=== PATIENT | female | born 1995 | race Caucasian/White ===

== ENCOUNTER 2021-04-22 16:58 | Emergency (ER) | payer OTHER, SELFPAY ==
--- NOTE | ~2021-04-22 | XR_ITS ---
EXAMINATION: XR CHEST CLINICAL INFORMATION: Fever and cough COMPARISON: None TECHNIQUE: Frontal view of the chest was obtained. FINDINGS: No significant abnormality is noted involving the heart, lungs, mediastinum, bony thorax or soft tissues. XR/XR chest 1V IMPRESSION: Unremarkable examination.
--- NOTE | ~2021-04-22 | CT_ITS ---
EXAMINATION: CT ANGIOGRAM CHEST WITH AND WITHOUT CONTRAST (CT PULMONARY ANGIOGRAM FOR PE) CLINICAL INFORMATION: Fever, shortness of breath, tachycardia. COMPARISON: Chest radiograph done earlier the same day. TECHNIQUE: Prior to contrast administration, noncontrast localization images were obtained. Subsequently, multidetector volumetric imaging was performed from the thoracic inlet to below the diaphragms following the administration of 85 mL Omnipaque 350 intravenous contrast. No contrast reaction reported. Sagittal, coronal, and MIP oblique sagittal reformatted images were obtained on the CT workstation, uploaded to PACS, and reviewed. This CT examination was performed using dose optimization techniques as appropriate, variously including the following: *Automated exposure control. *Adjustment of mA and/or kV according to patient size (this includes techniques or standardized protocols for targeted exams where dose is matched to indication/reason for exam; i.e. extremities or head). *Use of iterative reconstruction technique. Total exam dose-length product 277 mGy-cm. FINDINGS: QUALITY OF STUDY/CONTRAST BOLUS: Satisfactory. PULMONARY ARTERIES: No central or segmental pulmonary emboli. THORACIC AORTA: No aneurysm or dissection. LUNG: No pulmonary nodule, mass, or airspace consolidation. The central airways are patent. PLEURA: No pleural effusion or pneumothorax. MEDIASTINUM: Mild cardiomegaly. No pericardial effusion. No mediastinal or hilar lymphadenopathy. No evidence of septal bowing or right heart strain. CHEST WALL/AXILLA: No axillary or internal mammary lymphadenopathy. OSSEOUS STRUCTURES: No acute or suspicious osseous abnormality. UPPER ABDOMEN: Unremarkable. No reflux of contrast into the hepatic veins to suggest elevated right heart pressures. CT/CT angio chest PE protocol IMPRESSION: 1. No central or segmental pulmonary embolism. 2. No pulmonary nodule, mass, or airspace consolidation. 3. Mild cardiomegaly. VTE: Negative.
[2021-04-22 17:13] VITALS: BP 117/62; PULSE 111; RESP 20; TEMP 37.8; O2SAT 96; BMI 80.4
--- NOTE | 2021-04-22 17:33 | ED.GENADULT ---
HPI - General Adult General Chief complaint: Upper Respiratory Symptoms Stated complaint: Covid symptoms Time Seen by Provider: 04/22/21 17:32 Source: patient Mode of arrival: ambulatory Limitations: no limitations History of Present Illness HPI narrative: 18-year-old female with history of obesity otherwise denies any past medical or surgical history she presents today with complaint of states she has had some mild runny nose/congestion with chills and body aches since yesterday and today had some vomiting and nausea with epigastric abdominal pain. States she has not had COVID-19 and is not vaccinated. States he has just generalized body aches that are most bothersome. Onset (ago): day(s) Radiation: non-radiation Severity: moderate Quality: aching Relieving factors: none Exacerbating factors: none Associated symptoms: nausea/vomiting Treatments prior to arrival: none Related Data Previous Rx's Medication Instructions Recorded ondansetron HCl 4 mg tablet 4 mg PO Q8H PRN #10 tab 04/22/21 (Zofran) Allergies Allergy/AdvReac Type Severity Reaction Status Date / Time No Known Allergies Allergy Verified 04/22/21 23:11 Review of Systems Review of Systems: Constitutional: No Weight loss, No Fever, No Chills, No Night Sweats, No Fatigue, No Malaise ENT/Mouth: No Hearing loss, No Ear Pain, + Nasal Congestion, No Sinus Pain, No Hoarseness, No sore throat, + Rhinorrhea, No Swallowing Difficulty Eyes: No Eye Pain, No Swelling, No Redness, No Foreign Body, No Discharge, No Vision Changes Cardiovascular: No Chest Pain, No SOB, No Dyspnea on Exertion, No Orthopnea, No Edema, No Palpitations Respiratory: No Cough, No Sputum, No Wheezing, No Dyspnea Gastrointestinal: + Nausea, + Vomiting, No Diarrhea, No Constipation, No abdominal Pain, No Hematochezia, No Melena Genitourinary: no irregular bleeding, No Dysuria, No Urinary Frequency, No Hematuria, No Urinary Incontinence, No Urgency, No Flank Pain, No Urinary Flow Changes, No Hesitancy Musculoskeletal: No joint pain, No Myalgias, No Joint Swelling Skin: No Skin Lesions, No rash Neuro: No Weakness, No Numbness, No Paresthesias, No Loss of Consciousness, No Dizziness, No Headache Psych: No Anxiety/Panic, No Depression, No SI/HI/AH/VH, No Social Issues Heme/Lymph: No Bruising, No Bleeding,No Lymphadenopathy Endocrine: No Polyuria, No Polydipsia, No Temperature Intolerance [facility] Past Medical History Medical History (Updated 04/22/21 @ 22:15 by Lm Correa NP) No known health problems Social History Social History Alcohol intake: current Alcohol intake frequency: a few times a month Patient Tobacco Use Status: Current everyday Tobacco user Smoked in Last 30 Days: Yes Use of substances other than those prescribed or required for medical reasons: No Advance Directives: No Advance Directives Information Provided: No Physical Exam Vital Signs: Vital Signs: Last Vital Signs Temp 99.5 F 04/22/21 23:09 Pulse 94 04/22/21 23:09 Resp 19 04/22/21 23:09 BP 140/70 H 04/22/21 23:09 Pulse Ox 98 04/22/21 23:09 Body Mass Index 80.4 Const: General: cooperative and healthy appearing; No acute distress or intoxicated appearing Nutritional Appearance: average body habitus Orientation/consciousness: patient oriented x3 HENMT: Head: Yes normal to inspection Ears: hearing grossly normal bilaterally Eyes: General: appearance normal, both eyes and all related structures Visual Araya: normal visual araya by confrontation Neck: Neck: Yes normal visual inspection, No positive Brudzinski's sign, No positive Kernig's sign and No tender Thyroid: Thyroid normal Chest: Chest palpation & inspection: normal inspection of the chest Resp: Effort & Inspection: normal respiratory effort Auscultation: clear to auscultation bilaterally Cardio: Jugular venous distension: no JVD Rate: tachycardic Heart sounds: S1 normal heart sound present and S2 normal heart sound present GI: Inspection: Yes normal to inspection Palpation (GI): Soft to palpation, nontender, no guarding, not rigid, hepatosplenomegaly present, no hepatosplenomegaly, no hepatomegaly, no pulsatile masses, no aortic enlargement, No Ascites present, No Carnett's sign positive, No Rebound tenderness present and No Bladder palpation abnormal Percussion: Yes normal to percussion Auscultation: normal bowel sounds : General: No Bladder palpation abnormal and Yes no CVA tenderness Back/Spine/Pelvis: Back: no CVA tenderness Skin: General skin exam: no rashes or lesions noted Lesions: no lesions Rashes: no rashes Trauma: no lacerations or abrasions Hair: normal Neuro: General: patient oriented x3 Extrem: General: Yes normal to inspection Course Reevaluation(s) Reevaluation #1: Febrile upon arrival, tachycardic mild upper respiratory symptoms. Meeting sepsis criteria protocol initiated. Will check labs including lactic acid, flu and RSV. States no abdominal pain just body aches all over. Reevaluation #2: With labs shows leukocytosis of 14, compressive metabolic profile shows elevated LDH, CRP slightly elevated, albumin 3.2, calcium 7.4 otherwise CMP within normal limits., chest x-ray unremarkable, surprisingly COVID, flu and RSV PCR negative. Afebrile now at 98.8 though she still slightly tachy at 108, she is on control thus CT of the chest was pursued for PE rule out this was unremarkable. She states she has no abdominal pain she is hungry, she feels overall better. I advised her that there is a possibility the PCR can be false negative and could be due to the fact it may be done a little earlier in her onset of symptoms and she must follow CDC precautions and advised for retesting 3 days. She feels comfortable she is out of bed ambulatory steady gait. Heart rate 90, afebrile. Again no complaint of abdominal pain, abdominal exam remains benign, Stable for discharge. Medical Decision Making Lab Data Result diagrams: 04/22/21 18:31 04/22/21 18:31 Labs: Lab Results 04/22/21 04/22/21 04/22/21 Range/Units 17:49 18:31 18:31 WBC 14.4 H (4.8-10.8) X10*3/uL RBC 4.54 (4.20-5.50) X10*6/uL Hgb 13.4 (12.0-16.0) g/dl Hct 40.7 (37-47) % MCV 89.6 (80-98) fL MCH 29.5 (27.0-33.0) pg MCHC 32.9 (31.0-35.0) g/dl RDW 13.4 (11.0-16.0) % Plt Count 174 (160-400) X10*3/uL MPV 10.4 (9.4-12.3) fL Immature Gran % (Auto) 0.2 (0.0-0.4) % Neut % (Auto) 89.3 H (45-73) % Lymph % (Auto) 6.9 L (20-40) % Osborne % (Auto) 3.5 (2-11) % Eos % (Auto) 0.0 (0-4) % Baso % (Auto) 0.1 (0-2) % Lymph # (Auto) 1.0 L (1.2-4.9) X10*3/uL Osborne # (Auto) 0.5 (0.1-1.2) X10*3/uL Eos # (Auto) 0.0 (0.0-0.4) X10*3/uL Baso # (Auto) 0.0 (0.0-0.2) X10*3/uL Abs Immat Gran (auto) 0.03 (0.00-0.03) X10*3/uL Absolute Neuts (auto) 12.9 H (2.0-8.3) X10*3/uL Absolute Nucleated RBC 0.000 (0.0-0.012) X10*3/uL Nucleated RBC % (auto) 0.0 (0.0-0.2) /100WBC PT 14.0 H (9.9-13.0) SEC INR 1.2 H (0.9-1.1) APTT 31.1 (24.1-38.0) SEC Sodium (135-145) mmol/L Potassium (3.3-5.1) mmol/L Chloride (96-108) mmol/L Carbon Dioxide (22-29) mmol/L Anion Gap (12-20) BUN (9-16) mg/dL Creatinine (0.5-1.4) mg/dL Estim Creat Clear Calc Estimated GFR Random Glucose (60-115) mg/dL Lactic Acid (0.5-2.0) mmol/L Calcium (8.4-10.2) mg/dL Ferritin (10-122) ng/mL Total Bilirubin (0.0-1.0) mg/dL AST (5-31) U/L ALT (0-31) U/L Alkaline Phosphatase (39-117) U/L Lactate Dehydrogenase (122-220) U/L C-Reactive Protein (< or = 0.50) mg/dL Total Protein (6.5-8.0) g/dL Albumin (3.5-5.0) g/dL Procalcitonin ng/mL Urine Color Urine Appearance Urine pH (5.0-8.0) Ur Specific Earleton (1.005-1.025) Urine Protein (NEG-TRACE) MG/DL Urine Glucose (UA) (NEG) MG/DL Urine Ketones (NEG) MG/DL Urine Blood (NEG) Urine Nitrite (NEG) Ur Leukocyte Esterase (NEG) Urine RBC (0) /HPF Urine WBC (0-4) /HPF Ur Squamous Epith Cells /LPF Urine Bacteria /LPF Urine Mucus /LPF Urine Test (NEGATIVE) Coronavirus (PCR) NEGATIVE (Negative) Influenza Type A (PCR) NEGATIVE (Negative) Influenza Type B (PCR) NEGATIVE (Negative) RSV RNA Qual (PCR) NEGATIVE (Negative) 04/22/21 04/22/21 04/22/21 Range/Units 18:31 18:31 18:31 WBC (4.8-10.8) X10*3/uL RBC (4.20-5.50) X10*6/uL Hgb (12.0-16.0) g/dl Hct (37-47) % MCV (80-98) fL MCH (27.0-33.0) pg MCHC (31.0-35.0) g/dl RDW (11.0-16.0) % Plt Count (160-400) X10*3/uL MPV (9.4-12.3) fL Immature Gran % (Auto) (0.0-0.4) % Neut % (Auto) (45-73) % Lymph % (Auto) (20-40) % Osborne % (Auto) (2-11) % Eos % (Auto) (0-4) % Baso % (Auto) (0-2) % Lymph # (Auto) (1.2-4.9) X10*3/uL Osborne # (Auto) (0.1-1.2) X10*3/uL Eos # (Auto) (0.0-0.4) X10*3/uL Baso # (Auto) (0.0-0.2) X10*3/uL Abs Immat Gran (auto) (0.00-0.03) X10*3/uL Absolute Neuts (auto) (2.0-8.3) X10*3/uL Absolute Nucleated RBC (0.0-0.012) X10*3/uL Nucleated RBC % (auto) (0.0-0.2) /100WBC PT (9.9-13.0) SEC INR (0.9-1.1) APTT (24.1-38.0) SEC Sodium 138 (135-145) mmol/L Potassium 3.5 (3.3-5.1) mmol/L Chloride 110 H (96-108) mmol/L Carbon Dioxide 19 L (22-29) mmol/L Anion Gap 13 (12-20) BUN 9 (9-16) mg/dL Creatinine 0.73 (0.5-1.4) mg/dL Estim Creat Clear Calc 199.0 Estimated GFR > 60 Random Glucose 78 (60-115) mg/dL Lactic Acid 0.8 (0.5-2.0) mmol/L Calcium 7.4 L (8.4-10.2) mg/dL Ferritin 82 (10-122) ng/mL Total Bilirubin 0.6 (0.0-1.0) mg/dL AST 18 (5-31) U/L ALT 21 (0-31) U/L Alkaline Phosphatase 54 (39-117) U/L Lactate Dehydrogenase 228 H (122-220) U/L C-Reactive Protein 8.24 H (< or = 0.50) mg/dL Total Protein 5.4 L (6.5-8.0) g/dL Albumin 3.2 L (3.5-5.0) g/dL Procalcitonin 0.36 ng/mL Urine Color Urine Appearance Urine pH (5.0-8.0) Ur Specific Earleton (1.005-1.025) Urine Protein (NEG-TRACE) MG/DL Urine Glucose (UA) (NEG) MG/DL Urine Ketones (NEG) MG/DL Urine Blood (NEG) Urine Nitrite (NEG) Ur Leukocyte Esterase (NEG) Urine RBC (0) /HPF Urine WBC (0-4) /HPF Ur Squamous Epith Cells /LPF Urine Bacteria /LPF Urine Mucus /LPF Urine Test (NEGATIVE) Coronavirus (PCR) (Negative) Influenza Type A (PCR) (Negative) Influenza Type B (PCR) (Negative) RSV RNA Qual (PCR) (Negative) 04/22/21 04/22/21 Range/Units 20:15 20:15 WBC (4.8-10.8) X10*3/uL RBC (4.20-5.50) X10*6/uL Hgb (12.0-16.0) g/dl Hct (37-47) % MCV (80-98) fL MCH (27.0-33.0) pg MCHC (31.0-35.0) g/dl RDW (11.0-16.0) % Plt Count (160-400) X10*3/uL MPV (9.4-12.3) fL Immature Gran % (Auto) (0.0-0.4) % Neut % (Auto) (45-73) % Lymph % (Auto) (20-40) % Osborne % (Auto) (2-11) % Eos % (Auto) (0-4) % Baso % (Auto) (0-2) % Lymph # (Auto) (1.2-4.9) X10*3/uL Osborne # (Auto) (0.1-1.2) X10*3/uL Eos # (Auto) (0.0-0.4) X10*3/uL Baso # (Auto) (0.0-0.2) X10*3/uL Abs Immat Gran (auto) (0.00-0.03) X10*3/uL Absolute Neuts (auto) (2.0-8.3) X10*3/uL Absolute Nucleated RBC (0.0-0.012) X10*3/uL Nucleated RBC % (auto) (0.0-0.2) /100WBC PT (9.9-13.0) SEC INR (0.9-1.1) APTT (24.1-38.0) SEC Sodium (135-145) mmol/L Potassium (3.3-5.1) mmol/L Chloride (96-108) mmol/L Carbon Dioxide (22-29) mmol/L Anion Gap (12-20) BUN (9-16) mg/dL Creatinine (0.5-1.4) mg/dL Estim Creat Clear Calc Estimated GFR Random Glucose (60-115) mg/dL Lactic Acid (0.5-2.0) mmol/L Calcium (8.4-10.2) mg/dL Ferritin (10-122) ng/mL Total Bilirubin (0.0-1.0) mg/dL AST (5-31) U/L ALT (0-31) U/L Alkaline Phosphatase (39-117) U/L Lactate Dehydrogenase (122-220) U/L C-Reactive Protein (< or = 0.50) mg/dL Total Protein (6.5-8.0) g/dL Albumin (3.5-5.0) g/dL Procalcitonin ng/mL Urine Color DK YELLOW Urine Appearance CLEAR Urine pH 6.5 (5.0-8.0) Ur Specific [place] 1.020 (1.005-1.025) Urine Protein TRACE (NEG-TRACE) MG/DL Urine Glucose (UA) NEG (NEG) MG/DL Urine Ketones 5 (NEG) MG/DL Urine Blood NEG (NEG) Urine Nitrite NEG (NEG) Ur Leukocyte Esterase NEG (NEG) Urine RBC 0-2 (0) /HPF Urine WBC 0-2 (0-4) /HPF Ur Squamous Epith Cells 2+ /LPF Urine Bacteria NONE /LPF Urine Mucus 2+ /LPF Urine Test NEGATIVE (NEGATIVE) Coronavirus (PCR) (Negative) Influenza Type A (PCR) (Negative) Influenza Type B (PCR) (Negative) RSV RNA Qual (PCR) (Negative) Discharge Plan Discharge Clinical Impression: Acute viral syndrome, Nausea & vomiting Patient Disposition: Home, Self-Care Instructions: Acute Nausea and Vomiting (ED), Viral Syndrome (ED) Additional Instructions: Please gradual increase your diet as tolerated Drink plenty of fluids Tylenol for pain and fever Return if any abdominal pain, fever, worsening symptoms Otherwise practice social distancing and precautions. If anything goes well please follow up with primary doctor in the next 2-3 days thank you Prescriptions: New ondansetron HCl [Zofran] 4 mg tablet 4 mg PO Q8H PRN (Reason: nausea and vomiting) Qty: 10 RF: 0 Referrals: Loulou Madsen MD [Primary Care Provider] - 3 days Interventions: ED Discharge Assessment Last Done: 04/22/21 23:16
[2021-04-22 18:00] VITALS: BP 115/68; PULSE 102; RESP 26; O2SAT 98
[2021-04-22] MEDS: Acetaminophen 325 MG TABLET 975 MG PO (18:11)
[2021-04-22 18:39] LABS: MANUAL DIFF FLAG NO
[2021-04-22 18:40] LABS: Basophils Percent Auto 0.1 % (0-2); Hematocrit 40.7 % (37-47); Hemoglobin 13.4 g/dl (12.0-16.0); Imm Gran Abs Auto 0.03 X10*3/uL (0.00-0.03); Imm Gran Pct Auto 0.2 % (0.0-0.4); Lymphocytes Percent Auto 6.9 % (20-40); Mean Corpuscular HGB Conc 32.9 g/dl (31.0-35.0); Mean Corpuscular Hemoglobin 29.5 pg (27.0-33.0); Mean Corpuscular Volume 89.6 fL (80-98); Mean Platelet Volume 10.4 fL (9.4-12.3); Monocytes Absolute Auto 0.5 X10*3/uL (0.1-1.2); Monocytes Percent Auto 3.5 % (2-11); Neutrophils Absolute Auto 12.9 X10*3/uL (2.0-8.3); Neutrophils Percent Auto 89.3 % (45-73); Platelet Count 174 X10*3/uL (160-400); Red Blood Count 4.54 X10*6/uL (4.20-5.50); Red Cell Distribution Width 13.4 % (11.0-16.0); White Blood Count 14.4 X10*3/uL (4.8-10.8)
[2021-04-22] MEDS: 0.9 % Sodium Chloride 1,000 ML 999 ML IV (18:40)
[2021-04-22 18:45] LABS: INTERNATIONAL NORM RATIO 1.2 (0.9-1.1)
[2021-04-22 18:48] LABS: Partial Thromboplastin Time 31.1 SEC (24.1-38.0)
[2021-04-22 18:51] LABS: Lactic Acid 0.8 mmol/L (0.5-2.0)
[2021-04-22 18:54] LABS: Influenza A PCR NEGATIVE (Negative); Influenza B PCR NEGATIVE (Negative); Resp Syncy Virus RNA Qual PCR NEGATIVE (Negative); SARS COV2 PCR INHOUSE NEGATIVE (Negative)
[2021-04-22 18:55] LABS: Alanine Aminotransferase 21 U/L (0-31); Albumin Level 3.2 g/dL (3.5-5.0); Alkaline Phosphatase 54 U/L (39-117); Anion Gap 13 (12-20); Aspartate Amino Transferase 18 U/L (5-31); Bilirubin Total 0.6 mg/dL (0.0-1.0); Blood Urea Nitrogen 9 mg/dL (9-16); C Reactive Protein 8.24 mg/dL (< or = 0.50); Calcium 7.4 mg/dL (8.4-10.2); Carbon Dioxide 19 mmol/L (22-29); Chloride 110 mmol/L (96-108); Estimated Glomerular Filt Rate > 60; Glucose Random 78 mg/dL (60-115); Lactate Dehydrogenase 228 U/L (122-220); Potassium 3.5 mmol/L (3.3-5.1); Sodium 138 mmol/L (135-145); Total Protein 5.4 g/dL (6.5-8.0)
[2021-04-22 19:08] VITALS: BP 139/83; PULSE 95; RESP 18; TEMP 37.3; O2SAT 96; O2SAT 97
[2021-04-22 19:16] LABS: Ferritin 82 ng/mL (10-122)
[2021-04-22 19:45] LABS: Procalcitonin 0.36 ng/mL
--- NOTE | 2021-04-22 19:52 | PC.NURSE ---
RN assumed care at 1900. Pt alert and oriented x4, calm and cooperative. Pt states 5/10 abd pain and generalized body aches, pt states abd pain has improved since she came to ER. Pt denies N/V at this time. IV intact. Vitals stable, afebrile at this time. Tele monitor NSR. Call mckeon in reach. Pt resting in stretcher without complaints at this time, will continue to monitor.
[2021-04-22 20:26] LABS: Appearance Urine CLEAR; Color Urine DK YELLOW; Glucose Urine UA NEG (NEG); Leukocyte Esterase Urine NEG (NEG); Nitrite Urine NEG (NEG); PH 6.5 (5.0-8.0); Urine Blood NEG (NEG); Urine Ketones 5 MG/DL (NEG); Urine Protein TRACE MG/DL (NEG-TRACE)
[2021-04-22 20:30] LABS: UPreg QC Valid YES; Urine Pregnancy NEGATIVE (NEGATIVE)
[2021-04-22 20:34] LABS: Mucus Urine 2+ /LPF; RBC Urine 0-2 /HPF (0); Squamous Epithelial Cell Urine 2+ /LPF; WBC Urine 0-2 /HPF (0-4)
[2021-04-22] MEDS: iohexoL 350 MG/ML 100 ML INFUS..BTL IV (21:19)
[2021-04-22 23:09] VITALS: BP 140/70; PULSE 94; RESP 19; TEMP 37.5; O2SAT 98
--- NOTE | 2021-04-22 23:49 | PC.NURSE ---
Pt alert and oriented x4, calm and cooperative. Pt states pain has improved since coming to ER. Pt denies N/V at this time. IV removed. Vitals stable. Pt educated on dc and agrees to dc plan. Pt wheeled out to private car where friend drove her home.
== END 2021-04-22 23:57 | disposition home or self-care (01) ==
PROVIDERS: Nurse Practitioner Primary Care; Emergency Provider Emergency Medicine; PCP Internal Medicine
DX: B34.9 Viral infection, unspecified (principal); R11.2 Nausea with vomiting, unspecified; M79.10 Myalgia, unspecified site; F17.200 Nicotine dependence, unspecified, uncomplicated; Z20.822 Contact with and (suspected) exposure to COVID-19; Z71.6 Tobacco abuse counseling; Z79.899 Other long term (current) drug therapy
CPT/HCPCS: 0241U; 36415; 71045; 71275; 80053; 81001; 81025; 82728; 83605; 83615; 84145; 85025; 85610; 85730; 86140; 87040; 96360; 99284; 99285; Q9967

== ENCOUNTER 2021-08-08 11:48 | Outpatient (REF) | payer OTHER, SELFPAY ==
[2021-08-08 13:23] LABS: COVID-19 Test Positive (Negative)
== END 2021-08-08 11:49 | disposition home or self-care (01) ==
LOC: HO.LAB 11:48
PROVIDERS: Visit Provider Internal Medicine
DX: Z20.822 Contact with and (suspected) exposure to COVID-19 (principal)
CPT/HCPCS: 87635; C9803

== ENCOUNTER 2021-10-27 06:10 | Emergency (ER) | payer OTHER, SELFPAY ==
--- NOTE | 2021-10-27 | ECG_ITS ---
Test Reason : CHEST PAIN Blood Pressure : / mmHG Vent. Rate : 128 BPM Atrial Rate : 128 BPM P-R Int : 148 ms QRS Dur : 072 ms QT Int : 294 ms P-R-T Axes : 035 027 017 degrees QTc Int : 429 ms Sinus tachycardia Low voltage QRS Borderline ECG No previous ECGs available Referred By: Generic ED Physician Electronically Signed By:PAUL FORBES
--- NOTE | ~2021-10-27 | XR_ITS ---
EXAMINATION: XR CHEST CLINICAL INFORMATION: Chest pain COMPARISON: CTA chest and chest x-ray 04/22/2021 TECHNIQUE: Frontal view of the chest was obtained. FINDINGS: Cardiac silhouette is normal in size. The lungs are adequately aerated. There is no lobar consolidation. No pleural effusion or pneumothorax. No gross osseous abnormality. XR/XR chest 1V IMPRESSION: No acute pulmonary pathology.
[2021-10-27 06:20] VITALS: BP 149/83; PULSE 161; RESP 24; TEMP 37.3; O2SAT 97; BMI 72.2
--- NOTE | 2021-10-27 06:33 | ED.CHESTPAIN ---
HPI - Chest Pain General Chief Complaint: Arrhythmia/Palpitations Stated Complaint: RAPID HEART BEAT USED COCAINE Time Seen by Provider: 10/27/21 06:28 Source: patient Mode of arrival: ambulatory Limitations: no limitations History of Present Illness MD complaint: chest pain Pertinent past history: other (used about $100 of cocaine all night - 1st time) Onset (ago): hour(s) (2) Timing of current episode: constant Prior episodes: No Onset: associated with drug use Pain location: substernal Pain radiation: none Severity: moderate Quality: heaviness Relieving factors: nothing Exacerbating factors: other (drug use) Context: other (used cocaine for the first time, snorted it $100 worth all night) Associated symptoms: nausea, dyspnea, sense of impending doom and palpitations Treatment prior to arrival: none Related Data Previous Rx's Medication Instructions Recorded ondansetron HCl 4 mg tablet 4 mg PO Q8H PRN #10 tab 04/22/21 (Zofran) ondansetron HCl 4 mg tablet 4 mg PO Q8H PRN #10 tab 04/22/21 (Zofran) ondansetron HCl 4 mg tablet 4 mg PO Q8H PRN #10 tab 04/22/21 (Zofran) lorazepam 1 mg tablet (Ativan) 1 mg PO BID PRN #4 tab 10/27/21 ondansetron 4 mg disintegrating 4 mg PO Q8H PRN #20 tab 10/27/21 tablet Allergies Allergy/AdvReac Type Severity Reaction Status Date / Time No Known Allergies Allergy Verified 04/22/21 23:11 Review of Systems Review of Systems: Constitutional : No Weight loss, No Fever, No Chills ENT/Mouth : No sore throat, No Rhinorrhea Eyes: No Eye Pain, No Swelling Cardiovascular : pos Chest Pain, pos SOB, no Dyspnea on Exertion, No Orthopnea, No Edema, pos Palpitations Respiratory : No Cough, No Sputum Gastrointestinal : pos Nausea, No Vomiting, No Diarrhea, No abdominal Pain, No Hematochezia, No Melena Genitourinary : No Dysuria, No Urinary Frequency Musculoskeletal : No joint pain, No Myalgias, No Joint Swelling Skin : No Skin Lesions, No rash Neuro : No Weakness, No Numbness, pos Dizziness, No Headache Psych : No Anxiety/Panic, No Depression Heme/Lymph: No Bruising, No Lymphadenopathy Endocrine : No Polyuria, No Polydipsia All other systems reviewed and are negative [facility] Past Medical History Attestation statement: The following information was validated with the patient. Medical History Anxiety Depression No known health problems Social History Social History Alcohol intake: current Alcohol intake frequency: a few times a month Patient Tobacco Use Status: Current everyday Tobacco user Use of substances other than those prescribed or required for medical reasons: Yes Substance Use Type: Crack/Cocaine Advance Directives: No Physical Exam Vital Signs: Vital Signs: Last Vital Signs Temp 98.3 F 10/27/21 08:10 Pulse 101 H 10/27/21 10:38 Resp 20 10/27/21 08:10 BP 149/82 H 10/27/21 10:38 Pulse Ox 97 10/27/21 10:38 BMI result Body Mass Index 72.2 Appearance: Alert. Oriented X3. Mild acute distress. Eyes: Pupils equal, round and reactive to light. ENT: Pharynx normal. Nose normal. Neck: Normal inspection. Neck supple. CVS: tachycardic heart rate and rhythm. Pulses normal. Respiratory: No respiratory distress. Breath sounds normal. Abdomen: Soft and non-tender. Skin: Skin warm and dry. Normal skin color. Normal skin turgor. Extremities: No lower extremity edema. Neuro: Oriented X 3. No motor deficit. No sensory deficit. Course Course Course Narrative: symptoms improving with ativan. BP improved, trop negative x 2 HR down to 102, feels safe for DC BP and HR controlled no headache no chest pain declines SUDE evalulation feels better after IV ativan x 2 and IVF x 2 MDM - Chest Pain MDM Narrative Medical decision making narrative: 26 yo female with hx of anxiety/depression here with c/o feeling chest pain, dyspnea, palpitations I feel like crap after recreationally using $100 worth of cocaine (sniffing) all night. She states that she has never done cocaine before, she didn't use anything else with it such as ETOH. At this time, labs - troponin, PO aspirin and IV ativan ordered. Dispo per results and findings. Denies SI. Lab Data Result diagrams: 10/27/21 06:36 10/27/21 06:36 Labs: Lab Results 10/27/21 10/27/21 10/27/21 Range/Units 06:36 06:36 06:36 WBC 12.0 H (4.8-10.8) X10*3/uL RBC 4.49 (4.20-5.50) X10*6/uL Hgb 13.6 (12.0-16.0) g/dl Hct 41.4 (37.0-47.0) % MCV 92.2 (80.0-98.0) fL MCH 30.3 (27.0-33.0) pg MCHC 32.9 (31.0-35.0) g/dl RDW 12.7 (11.0-16.0) % Plt Count 257 (160-400) X10*3/uL MPV 10.3 (9.4-12.3) fL Immature Gran % (Auto) 0.3 (0.0-0.4) % Neut % (Auto) 78.9 H (45-73) % Lymph % (Auto) 15.2 L (20-40) % [place] % (Auto) 5.1 (2-11) % Eos % (Auto) 0.2 (0-4) % Baso % (Auto) 0.3 (0-2) % Lymph # (Auto) 1.8 (1.2-4.9) X10*3/uL [place] # (Auto) 0.6 (0.1-1.2) X10*3/uL Eos # (Auto) 0.0 (0.0-0.4) X10*3/uL Baso # (Auto) 0.0 (0.0-0.2) X10*3/uL Abs Immat Gran (auto) 0.04 H (0.00-0.03) X10*3/uL Absolute Neuts (auto) 9.5 H (2.0-8.3) x10*3/uL Absolute Nucleated RBC 0.000 (0.0-0.012) X10*3/uL Nucleated RBC % (auto) 0.0 (0.0-0.2) /100WBC Sodium 140 (135-145) mmol/L Potassium 3.8 (3.3-5.1) mmol/L Chloride 108 (96-108) mmol/L Carbon Dioxide 22 (22-29) mmol/L Anion Gap 14 (12-20) BUN 18 H (9-16) mg/dL Creatinine 1.00 (0.5-1.4) mg/dL Estim Creat Clear Calc 134.5 Estimated GFR > 60 Random Glucose 114 (60-115) mg/dL Calcium 9.7 D (8.4-10.2) mg/dL Total Bilirubin 0.4 (0.0-1.0) mg/dL AST 18 (5-31) U/L ALT 18 (0-31) U/L Alkaline Phosphatase 83 D (39-117) U/L Troponin I High Sens < 3.5 (<3.5-17.0) ng/L Total Protein 7.3 D (6.5-8.0) g/dL Albumin 4.1 D (3.5-5.0) g/dL 10/27/21 Range/Units 09:29 WBC (4.8-10.8) X10*3/uL RBC (4.20-5.50) X10*6/uL Hgb (12.0-16.0) g/dl Hct (37.0-47.0) % MCV (80.0-98.0) fL MCH (27.0-33.0) pg MCHC (31.0-35.0) g/dl RDW (11.0-16.0) % Plt Count (160-400) X10*3/uL MPV (9.4-12.3) fL Immature Gran % (Auto) (0.0-0.4) % Neut % (Auto) (45-73) % Lymph % (Auto) (20-40) % [place] % (Auto) (2-11) % Eos % (Auto) (0-4) % Baso % (Auto) (0-2) % Lymph # (Auto) (1.2-4.9) X10*3/uL [place] # (Auto) (0.1-1.2) X10*3/uL Eos # (Auto) (0.0-0.4) X10*3/uL Baso # (Auto) (0.0-0.2) X10*3/uL Abs Immat Gran (auto) (0.00-0.03) X10*3/uL Absolute Neuts (auto) (2.0-8.3) x10*3/uL Absolute Nucleated RBC (0.0-0.012) X10*3/uL Nucleated RBC % (auto) (0.0-0.2) /100WBC Sodium (135-145) mmol/L Potassium (3.3-5.1) mmol/L Chloride (96-108) mmol/L Carbon Dioxide (22-29) mmol/L Anion Gap (12-20) BUN (9-16) mg/dL Creatinine (0.5-1.4) mg/dL Estim Creat Clear Calc Estimated GFR Random Glucose (60-115) mg/dL Calcium (8.4-10.2) mg/dL Total Bilirubin (0.0-1.0) mg/dL AST (5-31) U/L ALT (0-31) U/L Alkaline Phosphatase (39-117) U/L Troponin I High Sens < 3.5 (<3.5-17.0) ng/L Total Protein (6.5-8.0) g/dL Albumin (3.5-5.0) g/dL ECG Data ECG #1: Attestation: I personally reviewed and interpreted this ECG as follows: ECG interpretation date: 10/27/21 ECG interpretation time: 07:27 Interpretation: Rate: 128 Rhythm: sinus tachycardia [place]: normal Normal P waves. Normal CATHERINE. Normal QRS complex. ST T wave : normal no KATYA qTC: normal prior studies: no acute ischemia The study has been interpreted contemporaneously by me. . Discharge Plan Discharge Clinical Impression: Sinus tachycardia Cocaine intoxication Qualifiers: Complication of substance-induced condition: uncomplicated Qualified Code(s): F14.920 - Cocaine use, unspecified with intoxication, uncomplicated Patient Disposition: Home, Self-Care Instructions: Cocaine Abuse (ED), Tachycardia (ED) Additional Instructions: return to ED for any worsening symptoms or concerns no caffeine, energy drinks, over the counter cough or cold medicine, do not take decongestants for your nose monitor for severe headaches, chest pain Prescriptions: New ondansetron 4 mg tablet,disintegrating 4 mg PO Q8H PRN (Reason: nausea and vomiting) Qty: 20 0RF lorazepam [Ativan] 1 mg tablet 1 mg PO BID PRN (Reason: anxiety) Qty: 4 0RF No Action ondansetron HCl [Zofran] 4 mg tablet 4 mg PO Q8H PRN (Reason: nausea and vomiting) Qty: 10 0RF ondansetron HCl [Zofran] 4 mg tablet 4 mg PO Q8H PRN (Reason: nausea and vomiting) Qty: 10 0RF ondansetron HCl [Zofran] 4 mg tablet 4 mg PO Q8H PRN (Reason: nausea and vomiting) Qty: 10 0RF Stand Alone Forms: Work/School Release
[2021-10-27 06:41] LABS: MANUAL DIFF FLAG NO
[2021-10-27 06:42] LABS: Basophils Percent Auto 0.3 % (0-2); Eosinophils Percent Auto 0.2 % (0-4); Hematocrit 41.4 % (37.0-47.0); Hemoglobin 13.6 g/dl (12.0-16.0); Imm Gran Abs Auto 0.04 X10*3/uL (0.00-0.03); Imm Gran Pct Auto 0.3 % (0.0-0.4); Lymphocytes Absolute Auto 1.8 X10*3/uL (1.2-4.9); Lymphocytes Percent Auto 15.2 % (20-40); Mean Corpuscular HGB Conc 32.9 g/dl (31.0-35.0); Mean Corpuscular Hemoglobin 30.3 pg (27.0-33.0); Mean Corpuscular Volume 92.2 fL (80.0-98.0); Mean Platelet Volume 10.3 fL (9.4-12.3); Monocytes Absolute Auto 0.6 X10*3/uL (0.1-1.2); Monocytes Percent Auto 5.1 % (2-11); Neutrophils Absolute Auto 9.5 x10*3/uL (2.0-8.3); Neutrophils Percent Auto 78.9 % (45-73); Platelet Count 257 X10*3/uL (160-400); Red Blood Count 4.49 X10*6/uL (4.20-5.50); Red Cell Distribution Width 12.7 % (11.0-16.0)
[2021-10-27 06:59] LABS: Alanine Aminotransferase 18 U/L (0-31); Albumin Level 4.1 g/dL (3.5-5.0); Alkaline Phosphatase 83 U/L (39-117); Anion Gap 14 (12-20); Aspartate Amino Transferase 18 U/L (5-31); Bilirubin Total 0.4 mg/dL (0.0-1.0); Blood Urea Nitrogen 18 mg/dL (9-16); Calcium 9.7 mg/dL (8.4-10.2); Carbon Dioxide 22 mmol/L (22-29); Chloride 108 mmol/L (96-108); Creatinine Clr Calc Pharmacy 134.5; Estimated Glomerular Filt Rate > 60; Glucose Random 114 mg/dL (60-115); Potassium 3.8 mmol/L (3.3-5.1); Sodium 140 mmol/L (135-145); Total Protein 7.3 g/dL (6.5-8.0)
[2021-10-27 07:32] LABS: Troponin-I High Sensitivity < 3.5 ng/L (<3.5-17.0)
[2021-10-27] MEDS: Aspirin 81 MG TAB.CHEW 162 MG PO (07:56)
[2021-10-27] MEDS: LORazepam 2 MG/ML VIAL 1 MG IVPUSH ×2 (07:59→10:38)
[2021-10-27] MEDS: 0.9 % Sodium Chloride 1,000 ML 999 ML IV ×2 (08:00→10:38)
[2021-10-27 08:10] VITALS: BP 136/73; PULSE 117; RESP 20; TEMP 36.8; O2SAT 96
[2021-10-27 09:57] LABS: Troponin-I High Sensitivity < 3.5 ng/L (<3.5-17.0)
[2021-10-27 10:09] VITALS: PULSE 111
[2021-10-27 10:38] VITALS: BP 149/82; PULSE 101; O2SAT 97
== END 2021-10-27 12:02 | disposition home or self-care (01) ==
PROVIDERS: Student in an Organized Health Care Education/Training Program; Emergency Provider Emergency Medicine; PCP Internal Medicine
DX: F14.920 Cocaine use, unspecified with intoxication, uncomplicated (principal); R00.0 Tachycardia, unspecified; F41.9 Anxiety disorder, unspecified; F17.200 Nicotine dependence, unspecified, uncomplicated
CPT/HCPCS: 36415; 71045; 80053; 84484; 85025; 93005; 96361; 96374; 96376; 99284; 99285; J2060

== ENCOUNTER 2022-10-12 07:47 | Emergency (ER) | payer OTHER, SELFPAY ==
[2022-10-12 07:50] VITALS: BP 141/82; PULSE 81; RESP 18; TEMP 35.7; O2SAT 96; BMI 63.2
--- NOTE | 2022-10-12 08:05 | ED.ANIMALBIT ---
HPI - Animal Bite General Chief Complaint: Animal Bite Stated Complaint: dog bite on finger Time Seen by Provider: 10/12/22 08:05 Source: patient Mode of arrival: ambulatory Limitations: no limitations History of Present Illness HPI narrative: 27 yo female presents to the ER for evaluation of a cat bite to her left ring finger and a dog bite to her right lower leg. She states her cat brought a bird into the house which made her dogs go crazy. She tried to break up the fight between her cat and dogs and ended up getting bit. She states her animals are all up to date on their vaccinations. She states the cut on her left ring finger hurts the worst. She feels lightheaded and dizzy. She is UTD on her tdap. MD complaint: animal bite Onset (ago): minute(s) (30) Animal: dog and cat Description of animal: household pet Mechanism: bite and scratch Location - Extremities: left: hand and right: lower leg Pain description: sharp and burning Severity scale (1-10): 8 Context: animals fighting Associated symptoms: chills Related Data Patient tetanus UTD: Yes Previous Rx's Medication Instructions Recorded ondansetron HCl 4 mg tablet 4 mg PO Q8H PRN nausea and 04/22/21 (Zofran) vomiting #10 tabs ondansetron HCl 4 mg tablet 4 mg PO Q8H PRN nausea and 04/22/21 (Zofran) vomiting #10 tabs ondansetron HCl 4 mg tablet 4 mg PO Q8H PRN nausea and 04/22/21 (Zofran) vomiting #10 tabs lorazepam 1 mg tablet (Ativan) 1 mg PO BID PRN anxiety #4 tabs 10/27/21 ondansetron 4 mg disintegrating 4 mg PO Q8H PRN nausea and 10/27/21 tablet vomiting #20 tabs amoxicillin 875 mg-potassium 1 tab PO BID #14 tabs 10/12/22 clavulanate 125 mg tablet ibuprofen 600 mg tablet 600 mg PO Q8H PRN pain #20 tabs 10/12/22 Allergies Allergy/AdvReac Type Severity Reaction Status Date / Time No Known Allergies Allergy Verified 04/22/21 23:11 Review of Systems Review of Systems: Yes all other systems are reviewed and are negative PMFSH Past Medical History Medical History Anxiety Depression No known health problems Social History Social History Alcohol intake: current Alcohol intake frequency: a few times a month Patient Tobacco Use Status: Current everyday Tobacco user Substance Use Type: Crack/Cocaine Advance Directives: No Advance Directives Information Provided: No Physical Exam ED Vital Signs: Vital Signs - 24 hr 10/12/22 07:50 Temperature 96.3 F L Pulse Rate 81 Respiratory Rate 18 Blood Pressure 141/82 H Pulse Oximetry 96 Oxygen Delivery Method Room Air BMI result Body Mass Index 63.2 Appearance: Alert. Oriented X3. No acute distress. HEENT: normal inspection CVS: Normal heart rate and rhythm. Pulses normal. Respiratory: No respiratory distress. Skin: Skin warm and dry. Normal skin color. Normal skin turgor. No rashes. Extremities: palmar aspect of the left ring finger with a 1.5cm irregular linear laceration with exposed adipose tissue. FROM of the finger. NV intact distally. 2 superficial abrasions on the dorsal aspect of the finger. right lower leg with 2 puncture wounds to the proximal calf, no surrounding erythema or streaking Neuro: Oriented X 3. No motor deficit. No sensory deficit. Medical Decision Making Medical Decision Making MDM Narrative: 27 yo female presents to [facility] ER for evaluation of cat bite to left ring finger and dog bit to right calf. left finger finger was cleaned w/ saline/H2O2 and then iodine. area was explored, deep structures intact. irrigated copiously with saline. FROM of the finger. 3 sutures placed after digital block. right calf with 2 puncture wounds. area irrigated and cleaned w/ iodine. DSD applied. patient will need abx to prevent infection. given wound care instructions and return precautions. stable for d/c home. Differential Diagnosis Differential Diagnoses: The differential diagnosis associated with the presentation includes puncture wound, cat bite, dog bite, infected wound,less likely deep wound involving tendon or bone External Record Review External record reviewed: Outpatient record Tests considered The following testing was considered but not selected: xr considered but deffered given exam findings. Prescription Management I considered prescription management with: Pain Medication and Antibiotic Procedures Laceration Laceration 1: Site: hand Side (If applicable): left Size (cm): 1.5 Description: linear and irregular Depth: simple, single layer Local Anesthetic: other anesthetic Pre-repair: wound explored, irrigated extensively and deep structures intact Skin layer closed with: nylon Size (cm): 4-0 Number of sutures: 3 Technique: simple, interrupted Nerve Block Nerve Block 1: Local Anesthetic: lidocaine 1% Amount of anesthesia used (mL): 6 Side: left Nerve Blocks: digital Procedure Successful: Yes Patient Tolerated Procedure: well and no complications Complications: none Critical Care Time Critical Care Time Critical Care Time: No Discharge Plan Discharge Clinical Impression: Dog bite, Cat bite Patient Disposition: Home, Self-Care Instructions: Animal Bite (ED) Additional Instructions: You will need your stitches out in 7- 10 days. See you doctor for this or come back to the ER and we will remove them. Do not get wet for 24 hours, after that you can briefly wash with soap and water then pat dry. Allow the wound open to air several hours per day when you are home, otherwise keep it clean and covered. Change the dressing every day. Do not submerge in water. Take the prescribed antibiotic as directed to prevent infection. Do not miss any doses and take the entire course. If you develop signs of infection including increased pain, swelling, redness or drainage of pus come back to the ER for further evaluation. Prescriptions: New amoxicillin-pot clavulanate 875-125 mg tablet 1 tab PO BID Qty: 14 0RF ibuprofen 600 mg tablet 600 mg PO Q8H PRN (Reason: pain) Qty: 20 0RF No Action ondansetron 4 mg tablet,disintegrating 4 mg PO Q8H PRN (Reason: nausea and vomiting) Qty: 20 0RF lorazepam [Ativan] 1 mg tablet 1 mg PO BID PRN (Reason: anxiety) Qty: 4 0RF ondansetron HCl [Zofran] 4 mg tablet 4 mg PO Q8H PRN (Reason: nausea and vomiting) Qty: 10 0RF ondansetron HCl [Zofran] 4 mg tablet 4 mg PO Q8H PRN (Reason: nausea and vomiting) Qty: 10 0RF ondansetron HCl [Zofran] 4 mg tablet 4 mg PO Q8H PRN (Reason: nausea and vomiting) Qty: 10 0RF Interventions: ED Discharge Assessment Last Done: 10/12/22 08:47
== END 2022-10-12 08:59 | disposition home or self-care (01) ==
PROVIDERS: Emergency Provider Emergency Medicine
DX: S61.255A Open bite of left ring finger without damage to nail, initial encounter (principal); S81.851A Open bite, right lower leg, initial encounter; W54.0XXA Bitten by dog, initial encounter; W55.01XA Bitten by cat, initial encounter; Y93.89 Activity, other specified; Y92.039 Unspecified place in apartment as the place of occurrence of the external cause; Y99.9 Unspecified external cause status
CPT/HCPCS: 12001; 99282; 99284

== ENCOUNTER 2025-03-20 10:21 | Emergency (ER) | payer SELFPAY ==
[2025-03-20 10:24] VITALS: BP 162/86; PULSE 93; RESP 18; TEMP 36.5; O2SAT 100; BMI 68.8
[2025-03-20 10:54] VITALS: BP 162/86; PULSE 93; RESP 18; TEMP 36.5; O2SAT 100
--- OUTSIDE RECORDS SUMMARY | 2025-03-20 11:03 | XMS_ITS ---
Author Name [facility] Organization Unknown Care Team Organization Name Specialty Phone Email Start Date End Da te [facility] 06/04/20222023
--- NOTE | 2025-03-20 11:19 | ED.GENADULT ---
HPI - General Adult General Chief complaint: General Medical Stated complaint: lip issues Time Seen by Provider: 03/20/25 11:06 Source: patient, RN notes reviewed and old records reviewed Mode of arrival: ambulatory Limitations: no limitations History of Present Illness ED Provider: Paige GRAYSON narrative: 30-year-old female presents for evaluation of a rash to her mouth. She reports that she has had swelling and bumps to her lips last couple of days pain She does report a new sexual partner. She describes the rash as burning in nature. Denies any itching. No fevers or chills. Denies any sore throat, cough. Related Data Previous Rx's ?Medication ?Instructions ?Recorded ondansetron HCl 4 mg tablet 4 mg PO Q8H PRN nausea and 04/22/21 (Zofran) vomiting #10 tabs ondansetron HCl 4 mg tablet 4 mg PO Q8H PRN nausea and 04/22/21 (Zofran) vomiting #10 tabs ondansetron HCl 4 mg tablet 4 mg PO Q8H PRN nausea and 04/22/21 (Zofran) vomiting #10 tabs lorazepam 1 mg tablet (Ativan) 1 mg PO BID PRN anxiety #4 tabs 10/27/21 ondansetron 4 mg disintegrating 4 mg PO Q8H PRN nausea and 10/27/21 tablet vomiting #20 tabs amoxicillin 875 mg-potassium 1 tab PO BID #14 tabs 10/12/22 clavulanate 125 mg tablet ibuprofen 600 mg tablet 600 mg PO Q8H PRN pain #20 tabs 10/12/22 valacyclovir 1 gram tablet 1,000 mg PO Q8H #21 tabs 03/20/25 Allergies Allergy/AdvReac Type Severity Reaction Status Date / Time No Known Allergies Allergy Verified 03/20/25 10:26 Review of Systems Constitutional: Constitutional: Denies body ache(s), Denies chills and Denies fever(s) Eyes: Eyes: Denies floaters and Denies itchy eyes ENT: Denies vertigo and Denies dizziness Cardiovascular: Cardiovascular: Denies chest pain and Denies dyspnea on exertion Respiratory: Respiratory: Denies cough and Denies dyspnea on exertion Gastrointestinal: Gastrointestinal: Denies abdominal pain, Denies nausea and Denies vomiting Musculoskeletal: Musculoskeletal: Denies back pain Integumentary/Breasts: Skin/Breast: Reports rash, Reports skin pain, Reports skin swelling and Reports sores Neurologic: Denies vertigo and Denies dizziness Allergic/Immunologic: Allergic/Immunologic: Denies itchy eyes PMFSH Past Medical History Medical History Anxiety Depression No known health problems Social History Social History Alcohol intake: current Alcohol intake frequency: a few times a month Patient Tobacco Use Status: Current everyday Tobacco user Substance Use Type: Crack/Cocaine Advance Directives: No Advance Directives Information Provided: No Do you have a plan to hurt others: No Plan Physical Exam ED Vital Signs: Vital Signs - 24 hr 03/20/25 10:24 03/20/25 10:54 03/20/25 12:03 Temperature 97.7 F 97.7 F 97.7 F Pulse Rate 93 93 93 Respiratory Rate 18 18 18 Blood Pressure 162/86 H 162/86 H 162/86 H Pulse Oximetry 100 100 100 Oxygen Delivery Method Room Air Room Air Room Air BMI result Body Mass Index 68.8 Const General: healthy appearing, comfortable, no acute distress, alert and awake Nutritional Appearance: well nourished Orientation/consciousness: patient oriented x3 HENMT Other: Several smelling vesicles/source mostly to the upper perioral region. No intraoral lesions Head: Yes normocephalic and Yes atraumatic Throat: Yes posterior oropharynx normal Eyes Eyelids: Yes eyelids normal Conjunctivae: conjunctivae normal Sclerae: sclerae normal Corneas: corneas normal Pupils: Equal, round and reactive pupils present EOM: EOMs intact bilaterally Neck Neck: Yes full ROM Resp Effort & Inspection: normal respiratory effort, able to speak in complete sentences and not labored Skin General skin exam: elasticity normal Neuro General: patient oriented x3 Cranial nerves: Yes Equal, round and reactive pupils present and Yes Bilaterally intact EOM present Cognition (Neuro): normal cognition Extrem Other: Moving all extremities well without any obvious deformities Medical Decision Making Medical Decision Making MDM Narrative: 30-year-old female presents for evaluation of sores on her lip. Her presentation is pretty classic for herpes simplex virus. She was swabbed with a herpes simplex culture. She is also requesting additional testing. She will be tested for syphilis with an RPR, gonorrhea and chlamydia. No she has no genitourinary symptoms. We will treat her with valacyclovir Differential Diagnosis Differential Diagnoses: The differential diagnosis associated with the presentation includes Herpes simplex virus 1 Herpes simplex virus 2 Cold sore Sexually transmitted infection Impetigo Discharge Plan Discharge Clinical Impression: Cold sore Patient Disposition: Home, Self-Care Instructions: Oral Herpes Infection (ED) Additional Instructions: You had a swab for a herpes culture. We will call you if the result is positive. In the meantime I recommend [id number] Abreva applied directly to the area. Take valacyclovir 3 times daily for 1 week You should avoid contact with 's until your rash subsides Prescriptions: New valacyclovir 1 gram tablet 1,000 mg PO Q8H Qty: 21 0RF No Action ondansetron 4 mg tablet,disintegrating 4 mg PO Q8H PRN (Reason: nausea and vomiting) Qty: 20 0RF lorazepam [Ativan] 1 mg tablet 1 mg PO BID PRN (Reason: anxiety) Qty: 4 0RF ondansetron HCl [Zofran] 4 mg tablet 4 mg PO Q8H PRN (Reason: nausea and vomiting) Qty: 10 0RF ondansetron HCl [Zofran] 4 mg tablet 4 mg PO Q8H PRN (Reason: nausea and vomiting) Qty: 10 0RF ondansetron HCl [Zofran] 4 mg tablet 4 mg PO Q8H PRN (Reason: nausea and vomiting) Qty: 10 0RF amoxicillin-pot clavulanate 875-125 mg tablet 1 tab PO BID Qty: 14 0RF ibuprofen 600 mg tablet 600 mg PO Q8H PRN (Reason: pain) Qty: 20 0RF Interventions: ED Discharge Assessment Last Done: 03/20/25 12:03 Discharge Date/Time: 03/20/25 12:03 Print Language: Malay
[2025-03-20 12:03] VITALS: BP 162/86; PULSE 93; RESP 18; TEMP 36.5; O2SAT 100
[2025-03-20 13:49] LABS: CT PCR Urine DETECTED (Not Detect.); NG PCR Urine NOT DETECTED (Not Detect.)
[2025-03-21 08:04] LABS: Syphilis Screen Nonreactive (Nonreactive)
== END 2025-03-20 12:03 | disposition home or self-care (01) ==
PROVIDERS: Physician Assistant; Emergency Provider Emergency Medicine
DX: B00.1 Herpesviral vesicular dermatitis (principal); A74.9 Chlamydial infection, unspecified
CPT/HCPCS: 36415; 86780; 87255; 87491; 87591; 99283; 99284

== ENCOUNTER 2025-03-22 13:35 | Emergency (ER) | payer SELFPAY ==
[2025-03-22 14:54] VITALS: BP 151/69; PULSE 100; RESP 16; TEMP 37; O2SAT 98; BMI 68.9
--- NOTE | 2025-03-22 15:06 | ED.FEMALEGU ---
HPI - Female Genitourinary General Chief complaint: Urogenital-Female Stated complaint: Gen med, wants to discuss w/ triage Time Seen by Provider: 03/22/25 14:55 Source: patient Mode of arrival: ambulatory Limitations: no limitations History of Present Illness ED Provider: Adrian Andersen HPI Narrative: 30 yold female presents to the Ed for ceftriaxone shot due to positive chlamydia. Patient was a callback. Related Data Previous Rx's ?Medication ?Instructions ?Recorded ondansetron HCl 4 mg tablet 4 mg PO Q8H PRN nausea and 04/22/21 (Zofran) vomiting #10 tabs ondansetron HCl 4 mg tablet 4 mg PO Q8H PRN nausea and 04/22/21 (Zofran) vomiting #10 tabs ondansetron HCl 4 mg tablet 4 mg PO Q8H PRN nausea and 04/22/21 (Zofran) vomiting #10 tabs lorazepam 1 mg tablet (Ativan) 1 mg PO BID PRN anxiety #4 tabs 10/27/21 ondansetron 4 mg disintegrating 4 mg PO Q8H PRN nausea and 10/27/21 tablet vomiting #20 tabs amoxicillin 875 mg-potassium 1 tab PO BID #14 tabs 10/12/22 clavulanate 125 mg tablet ibuprofen 600 mg tablet 600 mg PO Q8H PRN pain #20 tabs 10/12/22 valacyclovir 1 gram tablet 1,000 mg PO Q8H #21 tabs 03/20/25 doxycycline hyclate 100 mg capsule 100 mg PO BID 7 days #14 caps 03/22/25 Allergies Allergy/AdvReac Type Severity Reaction Status Date / Time No Known Allergies Allergy Verified 03/22/25 14:55 Review of Systems Review of Systems: positive chlamydia Yes all other systems are reviewed and are negative [facility] Past Medical History Medical History Anxiety Depression No known health problems Social History Social History Alcohol intake: current Alcohol intake frequency: a few times a month Patient Tobacco Use Status: Current everyday Tobacco user Substance Use Type: Crack/Cocaine Advance Directives: No Advance Directives Information Provided: No Physical Exam Vital Signs: Vital Signs: Last Vital Signs Temp 98.6 F 03/22/25 14:54 Pulse 100 03/22/25 14:54 Resp 16 03/22/25 14:54 BP 151/69 H 03/22/25 14:54 Pulse Ox 98 03/22/25 14:54 O2 Del Method Room Air 03/22/25 14:54 BMI result Body Mass Index 68.9 Const: General: cooperative, healthy appearing, comfortable, no acute distress, well developed, alert, awake and Physically active Orientation/consciousness: patient oriented x3 HEENT: Head: Yes normal to inspection, Yes No palpable skull fracture present and Yes normocephalic Eyes: General: appearance normal, both eyes and all related structures Neck: Neck: Yes normal visual inspection, Yes full ROM, Yes no lymphadenopathy, Yes no meningeal signs, Yes trachea midline, Yes supple, No anterior neck swelling and No tender Chest: Chest palpation & inspection: normal inspection of the chest and normal palpation of entire chest wall Resp: Effort & Inspection: normal respiratory effort and able to speak in complete sentences Auscultation: clear to auscultation bilaterally Cardio: Jugular venous distension: no JVD Heart sounds: S1 normal heart sound present and S2 normal heart sound present GI: Inspection: Yes normal to inspection Palpation (GI): Soft to palpation, not firm, nontender, no guarding and not rigid : General: Yes no CVA tenderness Back/Spine/Pelvis: Back: no CVA tenderness and No back tenderness Skin: General skin exam: no rashes or lesions noted, elasticity normal and turgor normal Neuro: General: patient oriented x3, gait normal, tone normal, moves all extremities, Normal light touch and pain sensation, no meningeal signs, no focal motor deficits and CN's II-XI intact bilaterally Extrem: General: Yes normal to inspection, Yes full ROM and Yes capillary refill normal Psych: Appearance: grossly normal, well kempt and not disheveled Medications Administered Discontinued Medications Generic Name Dose Route Start Last Admin Trade Name Álvaroq PRN Reason Stop Dose Admin Ceftriaxone Sodium 500 mg/ 0 mg 03/22/25 14:55 03/22/25 15:07 Lidocaine HCl 1 ml IM 03/22/25 14:56 500 kit ONCE ONE Administration Medical Decision Making Medical Decision Making MDM Narrative: 30 year old female tested positive for chlamydia was called into the ED for treatment with ceftriaxone found cutting IM. Patient states her partner was informed to get tested and treated. Patient states no other complaint. Ceftriaxone injection given. Patient explained worrisome signs and informed to return to the ED immediately. Not suspecting tubo-ovarian abscess Differential Diagnosis Differential Diagnoses: The differential diagnosis associated with the presentation includes (Infection) Admission/Observation Consideration of admission/observation: Escalation of care including admission/observation considered Independent Historian Clinical information obtained from an independent historian. History obtained from or confirmed by: Other (Patient) Prescription Management I considered prescription management with: Antibiotic Discharge Plan Discharge Clinical Impression: STI (sexually transmitted infection) Patient Disposition: Home, Self-Care Instructions: Vaginal Discharge (ED) Additional Instructions: Recommend being compliant with antibiotics. No sexual activity with partner for the next 7 days. If you having any sexual activity within 7 days use protection. Return to the ED immediately for any abdominal pain, nausea, vomiting, flank pain, fever, chills, profuse vaginal discharge, or any other concerning symptoms. Prescriptions: No Action ondansetron 4 mg tablet,disintegrating 4 mg PO Q8H PRN (Reason: nausea and vomiting) Qty: 20 0RF lorazepam [Ativan] 1 mg tablet 1 mg PO BID PRN (Reason: anxiety) Qty: 4 0RF ondansetron HCl [Zofran] 4 mg tablet 4 mg PO Q8H PRN (Reason: nausea and vomiting) Qty: 10 0RF ondansetron HCl [Zofran] 4 mg tablet 4 mg PO Q8H PRN (Reason: nausea and vomiting) Qty: 10 0RF ondansetron HCl [Zofran] 4 mg tablet 4 mg PO Q8H PRN (Reason: nausea and vomiting) Qty: 10 0RF amoxicillin-pot clavulanate 875-125 mg tablet 1 tab PO BID Qty: 14 0RF ibuprofen 600 mg tablet 600 mg PO Q8H PRN (Reason: pain) Qty: 20 0RF valacyclovir 1 gram tablet 1,000 mg PO Q8H Qty: 21 0RF doxycycline hyclate 100 mg capsule 100 mg PO BID 7 Days Qty: 14 0RF Stand Alone Forms: Work/School Release Discharge Date/Time: 03/22/25 15:53 Print Language: Greenlandic
[2025-03-22] MEDS: cefTRIAXone sodium 500 MG, Lidocaine HCl 1 % MPF 1 ML IM (15:07)
--- OUTSIDE RECORDS SUMMARY | 2025-03-22 16:12 | XMS_ITS | Clinical Summary ---
Author Organization [facility] Address [address] [place] [address] Phone Care Team Providers Care Net Solutions Architect Name Role Phone Pcp, Unknown Primary Care Provider Unavailabl e Allergies No known active allergies Medications No known medications Immunizations Immunization Administration Dates Next Due Tdap 06/07/2017 Social History Tobacco Use Types Packs/Day Years Used Date Smoking Tobacco: Every Day Cigarettes Smokeless Tobacco: Never Tobacco Cessation:Ready to Q uit: No; Counseling Given: Yes Alcohol Use Standard Drinks/Week Comments Not Currently 0 (1 standard drink = 0.6 oz pur e alcohol) Education Answer Date Recorded Are you interested in more education? Not on tomer e 11/22/2022 Are you concerned about learning? Not on file 11/22/2022 No 11/22/2022 No 11/22/2022 Digital Access Answer Date Recorded No 12/23/2022 No 12/23/2022 No 12/23/2022 Reliable internet access at home? Not on file 12/23/2022 Device with a working camera? Not on file Comments Unknown Sex and Gender Information Value Date Recorded Sex Assigned at Female 04/29/2019 5:22 PM EDT Legal Sex Female 8:57 PM EDT Gender Identity Female 04/29/2019 5:22 PM EDT Sexual Orientation Not on file Last Filed Vital Signs Vital Sign Reading Time Taken Comments Blood Pressure 122/77 04/30/2019 1:46 AM EDT Pulse 90 04/30/2019 1:46 AM EDT Temperature 36.8 C (98.3 F) 04/29/2019 5:18 PM EDT Respiratory Rate 18 04/30/2019 1:46 AM EDT Oxygen Saturation 95% 04/30/2019 1:46 AM EDT Inhaled Oxygen Concentration - - Weight 199.2 kg (439 lb 3.2 oz) 04/29/2019 5:18 PM EDT Height 157.5 cm (5' 2 ) 04/29/2019 5:18 PM EDT Body Mass Index 80.33 04/29/2019 5:18 PM EDT Plan of Treatment Not on file Medical Devices Not on file Insurance HEALTH SAFETY NET PARTIAL [employer] SAFETY NET PARTIAL HEALTH SAFETY NET PARTIAL HEALTH SAFETY NET PARTIAL HEALTH SAFETY NET PARTIAL HEALTH SAFETY NET PARTIAL HEALTH SAFETY NET PARTIAL HEALTH SAFETY NET PARTIAL HEALTH SAFETY NET PARTIAL Care Teams Net Solutions Architect Relationship Specialty Start Date End Date Pcp, Unknown PCP - General 04/29/19 Additional Source Comments The information contained in this document represents components of the legal health record. It is not the complete legal health record.[facility]
--- OUTSIDE RECORDS SUMMARY | 2025-03-22 16:12 | XMS_ITS | Encounter Summary ---
Author Organization [facility] Address [address] [place] [id number] Phone Care Team Providers Care Aerial Photograph Interpreter Name Role Phone Unknown, Unknown Primary Care Provider Sujey Conrad MD Primary Care Provider [phone] Pcp, Unknown Primary Care Provider Unavailabl e Encounter Details Date Type Department Care Team (Late st Contact Info) Description 05/26/2017 Procedure Pass [facility], Ct Scan - [address] [address] Social History Tobacco Use Types Packs/Day Years Used Date Smoking Tobacco: Never Assessed Comments Unknown Sex and Gender Information Value Date Recorded Sex Assigned at Female 04/29/2019 5:22 PM EDT Legal Sex Female 8:57 PM EDT Gender Identity Female 04/29/2019 5:22 PM EDT Sexual Orientation Not on file documented as of this encounter Plan of Treatment Not on file documented as of this encounter Visit Diagnoses Not on filedocumented in this encounter Care Teams Aerial Photograph Interpreter Relationship Specialty Start Date End Date Unknown, Unknown, PCP - General 05/26/17 06/06/17 Sujey Flores MD PCP - General Family Medicine 06/07/17 04/28/19 Pcp, Unknown PCP - General 04/29/19 documented as of this encounter Additional Source Comments The information contained in this document represents components of the legal health record. It is not the complete legal health record.[facility]
--- OUTSIDE RECORDS SUMMARY | 2025-03-22 16:12 | XMS_ITS | Encounter Summary ---
Author Organization [facility] Address [address] [place] [id number] Phone Care Team Providers Care Email Marketer Name Role Phone Sujey Flores MD Primary Care Provider [phone] Pcp, Unknown Primary Care Provider Unavailabl e Encounter Details Date Type Department Care Team (Late st Contact Info) Description 06/07/2017 Procedure Pass [facility], Ct Scan - [address] [address] Social History Tobacco Use Types Packs/Day Years Used Date Smoking Tobacco: Every Day Cigarettes Smokeless Tobacco: Never Alcohol Use Standard Drinks/Week Comments Yes 2 (1 standard drink = 0.6 oz pur e alcohol) Comments Unknown Sex and Gender Information Value Date Recorded Sex Assigned at Female 04/29/2019 5:22 PM EDT Legal Sex Female 8:57 PM EDT Gender Identity Female 04/29/2019 5:22 PM EDT Sexual Orientation Not on file documented as of this encounter Plan of Treatment Not on file documented as of this encounter Visit Diagnoses Not on filedocumented in this encounter Care Teams Email Marketer Relationship Specialty Start Date End Date Sujey Flores MD PCP - General Family Medicine 06/07/17 04/28/19 Pcp, Unknown PCP - General 04/29/19 documented as of this encounter Additional Source Comments The information contained in this document represents components of the legal health record. It is not the complete legal health record.[facility]
== END 2025-03-22 15:53 | disposition home or self-care (01) ==
LOC: HO.ED 15:17
PROVIDERS: Emergency Provider Emergency Medicine
DX: A56.8 Sexually transmitted chlamydial infection of other sites (principal); F41.9 Anxiety disorder, unspecified; F32.A Depression, unspecified; F17.210 Nicotine dependence, cigarettes, uncomplicated
CPT/HCPCS: 99281; J0696; J2003

== ENCOUNTER 2025-04-03 16:20 | Emergency (ER) | payer SELFPAY ==
[2025-04-03 16:44] VITALS: BP 154/70; PULSE 106; RESP 20; TEMP 36.3; O2SAT 98; BMI 69.0
--- NOTE | 2025-04-03 16:49 | ED_ITS ---
HPI - Female Genitourinary General Chief complaint: Urogenital-Female Stated complaint: STI re-test Time Seen by Provider: 04/03/25 19:08 Mode of arrival: ambulatory Limitations: no limitations History of Present Illness ED Provider: Nils ATKINSON HPI Narrative: The patient is a 30-year-old female presenting to the ED for repeat chlamydia testing. Patient reports she was diagnosed with chlamydia 2 weeks ago, treated with ceftriaxone, and states she was informed by ED provider's to return to the ED for repeat testing. The patient reports she has been experiencing some dysuria, vaginal burning, and vaginal itching. The patient denies associated fever/chills, nausea, vomiting, abdominal pain, hematuria, vaginal discharge, irregular vaginal bleeding, or other acute somatic complaint. Patient reports she feels well. Related Data Previous Rx's ?Medication ?Instructions ?Recorded ondansetron HCl 4 mg tablet 4 mg PO Q8H PRN nausea and 04/22/21 (Zofran) vomiting #10 tabs ondansetron HCl 4 mg tablet 4 mg PO Q8H PRN nausea and 04/22/21 (Zofran) vomiting #10 tabs ondansetron HCl 4 mg tablet 4 mg PO Q8H PRN nausea and 04/22/21 (Zofran) vomiting #10 tabs lorazepam 1 mg tablet (Ativan) 1 mg PO BID PRN anxiety #4 tabs 10/27/21 ondansetron 4 mg disintegrating 4 mg PO Q8H PRN nausea and 10/27/21 tablet vomiting #20 tabs amoxicillin 875 mg-potassium 1 tab PO BID #14 tabs clavulanate 125 mg tablet ibuprofen 600 mg tablet 600 mg PO Q8H PRN pain #20 t abs 10/12/22 valacyclovir 1 gram tablet 1,000 mg PO Q8H #21 tabs doxycycline hyclate 100 mg capsule 100 mg PO BID 7 day s #14 caps 03/22/25 Allergies Allergy/AdvReac Type Severity Reaction Status Date / Time No Known Allergies Allergy Verified 04/03/25 16:45 Review of Systems 2 Review of Systems: Yes all other systems are reviewed and are negative PMFSH Past Medical History Medical History Anxiety Depression No known health problems Social History Social History Alcohol intake: current Alcohol intake frequency: a few times a month Patient Tobacco Use Status: Current everyday Tobacco user Substance Use Type: Crack/Cocaine Advance Directives: No Advance Directives Information Provided: No Physical Exam 2 Vital Signs: Vital Signs: Last Vital Signs Temp 97.4 F 04/03/25 20:31 Pulse 106 H 04/03/25 20:31 Resp 20 04/03/25 20:31 BP 154/70 H 04/03/25 20:31 Pulse Ox 98 04/03/25 20:31 O2 Del Method Room Air 04/03/25 20:31 BMI result Body Mass Index 69.0 CONSTITUTIONAL: The patient appears non-toxic, well nourished and in no acute distress. Vital signs as documented. HEAD: Atraumatic, normocephalic. EYES: EOMs grossly intact, pupils equal, conjunctiva clear, no exudate. ENT: Nares patent, no discharge. Airway patent, no audible stridor, visible mucosa is pink and moist without noted lesions. NECK: trachea is midline, no obvious masses or gross abnormalities. CHEST: Symmetric movement, normal appearance. LUNGS: Non-labored work of breathing. CARDIAC: No evidence of hypoperfusion. ABDOMEN: Nondistended, no obvious injury. : Deferred. EXTREMITIES: Moves all extremities spontaneously without reported pain. No obvious injury or deformity noted. NEURO: Alert and oriented x3, CN II-XII appear grossly intact. Cerebellar Functioning grossly intact. Speech clear and appropriate. SKIN: Warm, dry, color appropriate. No rashes or lesions noted. Course Course Course Narrative: RME: 30-year-old female history of recent positive chlamydia presents to ED for dysuria, vaginal itching and missed menstruation. Patient states last. It is a 15. Patient denies any abdominal pain nausea vomiting. Labs UA CT angio ordered Medications Administered Discontinued Medications Generic Name Dose Route Start Last Admin Trade Name Freq PRN Reason Stop Dose Admin Fluconazole 150 mg 04/03/25 20:00 04/03/25 20:20 Fluconazole 150 Mg Tablet PO 04/03/25 20:01 150 mg ONCE ONE Administration Medical Decision Making Medical Decision Making MDM Narrative: 7:58 PM 04/03/2025 (Dalila ATKINSON): Patient is a 30-year-old female presenting to the ED for repeat chlamydia testing. The patient reports she was diagnosed with chlamydia 2 weeks ago, treated with ceftriaxone, and was instructed to return to the ED for repeat testing. The patient reports she has been experiencing some burning urination, with vaginal burning and itching. The patient denies other acute somatic complaint. Patient appears nontoxic, was offered pelvic exam to evaluate/test for yeast infection, patient declined pelvic examination. The patient's urinalysis is negative for infection, remaining laboratory evaluation is reassuring, chlamydia testing is pending. The patient will be treated with a single dose of fluconazole for suspected possible yeast infection and discharged. Admission/Observation Consideration of admission/observation: Escalation of care including admission/observation considered Lab Data MDM Lab Attestation statement: I reviewed the patient's lab results. 04/03/25 17:11 04/03/25 17:11 Labs: Lab Results 04/03/25 04/03/25 04/03/25 Range/Units 17:11 18:12 18:18 WBC 7.7 (4.8-10.8) X10*3/uL RBC 4.81 (4.20-5.50) X10*6/uL Hgb 14.6 (12.0-16.0) g/dl Hct 42.6 (37.0-47.0) % MCV 88.6 (80.0-98.0) fL MCH 30.4 (27.0-33.0) pg MCHC 34.3 (31.0-35.0) g/dl RDW 13.2 (11.0-16.0) % Plt Count 193 (160-400) X10*3/uL MPV 10.4 (9.4-12.3) fL Immature Gran % (Auto) 0.3 (0.0-0.4) % Neut % (Auto) 60.0 (45-73) % Lymph % (Auto) 31.4 (20-40) % [place] % (Auto) 6.1 (2-11) % Eos % (Auto) 1.8 (0-4) % Baso % (Auto) 0.4 (0-2) % Lymph # (Auto) 2.4 (1.2-4.9) X10*3/uL [place] # (Auto) 0.5 (0.1-1.2) X10*3/uL Eos # (Auto) 0.1 (0.0-0.4) X10*3/uL Baso # (Auto) 0.0 (0.0-0.2) X10*3/uL Abs Immat Gran (auto) 0.02 (0.00-0.03) X10*3/uL Absolute Neuts (auto) 4.6 (2.0-8.3) x10*3/uL Absolute Nucleated RBC 0.000 (0.0-0.012) X10*3/uL Nucleated RBC % (auto) 0.0 (0.0-0.2) /100WBC PT 11.4 (10.9-12.4) SEC INR 1.0 (0.9-1.1) APTT 25.5 L (26.7-34.1) SEC Sodium 141 (135-145) mmol/L Potassium 4.4 (3.3-5.1) mmol/L Chloride 114 H (96-108) mmol/L Carbon Dioxide 20 L (22-29) mmol/L Anion Gap 11 L (12-20) BUN 19 H (9-16) mg/dL Creatinine 1.15 (0.5-1.4) mg/dL Estim Creat Clear Calc 109.1 Estimated GFR 55 Random Glucose 86 (60-115) mg/dL Calcium 8.9 D (8.4-10.2) mg/dL Total Bilirubin 0.2 (0.0-1.0) mg/dL AST 28 (5-31) U/L ALT 20 (0-31) U/L Alkaline Phosphatase 80 (39-117) U/L Total Protein 7.3 (6.5-8.0) g/dL Albumin 4.1 (3.5-5.0) g/dL Lipase 30 (8-78) U/L Beta HCG, Quant < 2 mIU/mL Urine Color Yellow Urine Appearance Clear Urine pH 6.0 (5.0-9.0) Ur Specific [place] >= 1.030 H (1.005-1.025) Urine Protein Negative (Neg-Trace) mg/dL Urine Glucose (UA) Negative (Negative) mg/dL Urine Ketones Negative (Negative) mg/dL Urine Blood Negative (Negative) Urine Nitrite Negative (Negative) Ur Leukocyte Esterase Negative (Negative) Urine Test NEGATIVE (NEGATIVE) Ur N gonorrhoeae DNA (PCR) NOT DETECTED (Not Detect.) Ur Chlamydia DNA (PCR) NOT DETECTED (Not Detect.) External Record Review External record reviewed: Outpatient record and Prior outpatient labs Prescription Management I considered prescription management with: Antibiotic Discharge Plan Discharge Clinical Impression: Encounter for screening, Vaginal pruritus Patient Disposition: Home, Self-Care Instructions: Yeast Infection (ED) Additional Instructions: Thank you for choosing [facility]'s Emergency Department for your care today. At this time there is no indication for admission to the hospital or continued ED observation, and it is safe to discharge you home. You were retested for chlamydia today as you were instructed to return for repeat testing after your visit 2 weeks ago. Your chlamydia testing will take 2-3 days for results. You were also evaluated for a possible UTI due to your complaints of burning and itching. Your urinalysis shows no evidence of a UTI. Given your recent treatment with antibiotics, it is possible you developed a yeast infection, as such we treated you with a single dose of 150 mg fluconazole. Please follow up with your primary care physician for re-evaluation, referral to an OBGYN, additional management of your symptoms, and continued preventative care. If you do not have a primary care physician, please call the [facility] at [phone] to establish a new primary care physician. While waiting to establish your new primary care physician, you can call our Walk-in [facility] at [phone] for non-emergency needs. Please return to the emergency department if you develop a severe or sudden change in your symptoms, a fever over 100.4 that does not improve with Tylenol or Ibuprofen, recurrent vomiting, or any other new or worsening symptoms or concerns. Prescriptions: No Action ondansetron 4 mg tablet,disintegrating 4 mg PO Q8H PRN (Reason: nausea and vomiting) Qty: 20 0RF lorazepam [Ativan] 1 mg tablet 1 mg PO BID PRN (Reason: anxiety) Qty: 4 0RF ondansetron HCl [Zofran] 4 mg tablet 4 mg PO Q8H PRN (Reason: nausea and vomiting) Qty: 10 0RF ondansetron HCl [Zofran] 4 mg tablet 4 mg PO Q8H PRN (Reason: nausea and vomiting) Qty: 10 0RF ondansetron HCl [Zofran] 4 mg tablet 4 mg PO Q8H PRN (Reason: nausea and vomiting) Qty: 10 0RF amoxicillin-pot clavulanate 875-125 mg tablet 1 tab PO BID Qty: 14 0RF ibuprofen 600 mg tablet 600 mg PO Q8H PRN (Reason: pain) Qty: 20 0RF valacyclovir 1 gram tablet 1,000 mg PO Q8H Qty: 21 0RF doxycycline hyclate 100 mg capsule 100 mg PO BID 7 Days Qty: 14 0RF [place]: [facility] [place]] Clinical Impression: Vaginal pruritus; Encounter for screening Interventions: ED Discharge Assessment Last Done: 04/03/25 20:31 Discharge Date/Time: 04/03/25 20:31 Print Language: Citizen [place]
--- OUTSIDE RECORDS SUMMARY | 2025-04-03 17:16 | XMS_ITS | Encounter Summary ---
Author Organization [facility] Address [address] [place] [address] Phone Care Team Providers Care Cooker Helper Name Role Phone Sujey Flores MD Primary Care Provider [phone]- [phone] Pcp, Unknown Primary Care Provider Unavailabl e Encounter Details Date Type Department Care Team (Late st Contact Info) Description 06/07/2017 Procedure Pass [facility], Ct Scan - [address] [address] Social History Tobacco Use Types Packs/Day Years [...] on filedocumented in this encounter Care Teams Cooker Helper Relationship Specialty Start Date End Date Suejy Flores MD PCP - General Family Medicine 06/07/17 04/28/19 Pcp, Unknown PCP - General 04/29/19 documented as of this encounter Additional Source Comments The information contained in this document represents components of the legal health record. It is not the complete legal health record.[facility]
[2025-04-03 17:17] LABS: Hematocrit 42.6 % (37.0-47.0); Hemoglobin 14.6 g/dl (12.0-16.0); Imm Gran Abs Auto 0.02 X10*3/uL (0.00-0.03); Imm Gran Pct Auto 0.3 % (0.0-0.4); Lymphocytes Absolute Auto 2.4 X10*3/uL (1.2-4.9); MANUAL DIFF FLAG NO; Mean Corpuscular HGB Conc 34.3 g/dl (31.0-35.0); Mean Corpuscular Hemoglobin 30.4 pg (27.0-33.0); Mean Corpuscular Volume 88.6 fL (80.0-98.0); NRBC Abs Auto 0.000 X10*3/uL (0.0-0.012); NRBC Pct Auto 0.0 /100WBC (0.0-0.2); Platelet Count 193 X10*3/uL (160-400); Red Blood Count 4.81 X10*6/uL (4.20-5.50); White Blood Count 7.7 X10*3/uL (4.8-10.8)
--- OUTSIDE RECORDS SUMMARY | 2025-04-03 17:17 | XMS_ITS | Clinical Summary ---
Author Organization [facility] Address [address] [place] [id number] Phone Care Team Providers Care Roller Machine Operator Name Role Phone Pcp, Unknown Primary Care [...] on file Insurance HEALTH SAFETY NET PARTIAL [employer] SAFETY NET PARTIAL HEALTH SAFETY NET PARTIAL HEALTH SAFETY NET PARTIAL HEALTH SAFETY NET PARTIAL HEALTH SAFETY NET PARTIAL HEALTH SAFETY NET PARTIAL HEALTH SAFETY NET PARTIAL HEALTH SAFETY NET PARTIAL Care Teams Roller Machine Operator Relationship Specialty Start Date End Date Pcp, Unknown PCP - General 04/29/19 Additional Source Comments The information contained in this document represents components of the legal health record. It is not the complete legal health record.[facility]
--- OUTSIDE RECORDS SUMMARY | 2025-04-03 17:17 | XMS_ITS | Encounter Summary ---
Author Organization [facility] Address [address] [place] [id number] Phone Care Team Providers Care Spring Intern Name Role Phone Unknown, Unknown Primary Care Provider Sujey Conrad MD Primary Care Provider [phone] Pcp, Unknown Primary Care Provider Unavailabl e Encounter Details Date Type Department Care Team (Late st Contact Info) Description 05/26/2017 Procedure Pass [facility], Ct Scan - [address] [address] Social History Tobacco Use Types Packs/Day Years [...] on filedocumented in this encounter Care Teams Spring Intern Relationship Specialty Start Date End Date Unknown, Unknown, PCP - General 05/26/17 06/06/17 Sujey Flores MD PCP - General Family Medicine 06/07/17 04/28/19 Pcp, [place] PCP - General 04/29/19 documented as of this encounter Additional Source Comments The information contained in this document represents components of the legal health record. It is not the complete legal health record.[facility]
[2025-04-03 17:23] LABS: INTERNATIONAL NORM RATIO 1.0 (0.9-1.1); Prothrombin Time 11.4 SEC (10.9-12.4)
[2025-04-03 17:25] LABS: Partial Thromboplastin Time 25.5 SEC (26.7-34.1)
[2025-04-03 17:40] LABS: Alanine Aminotransferase 20 U/L (0-31); Albumin Level 4.1 g/dL (3.5-5.0); Alkaline Phosphatase 80 U/L (39-117); Anion Gap 11 (12-20); Aspartate Amino Transferase 28 U/L (5-31); Blood Urea Nitrogen 19 mg/dL (9-16); Calcium 8.9 mg/dL (8.4-10.2); Carbon Dioxide 20 mmol/L (22-29); Chloride 114 mmol/L (96-108); Creatinine Clr Calc Pharmacy 109.1; Estimated Glomerular Filt Rate 55; Lipase 30 U/L (8-78); Potassium 4.4 mmol/L (3.3-5.1); Sodium 141 mmol/L (135-145); Total Protein 7.3 g/dL (6.5-8.0)
[2025-04-03 18:27] LABS: Appearance Urine Clear; Glucose Urine UA Negative (Negative); PH 6.0 (5.0-9.0); Specific Gravity - Urine >= 1.030 (1.005-1.025)
[2025-04-03 18:29] LABS: UPreg QC Valid YES
[2025-04-03 20:31] VITALS: BP 154/70; PULSE 106; RESP 20; TEMP 36.3; O2SAT 98
[2025-04-04 02:32] LABS: CT PCR Urine NOT DETECTED (Not Detect.); NG PCR Urine NOT DETECTED (Not Detect.)
== END 2025-04-03 20:31 | disposition home or self-care (01) ==
PROVIDERS: Physician Assistant; Emergency Provider Student in an Organized Health Care Education/Training Program
DX: L29.2 Pruritus vulvae (principal); R30.0 Dysuria; R10.2 Pelvic and perineal pain; Z20.2 Contact with and (suspected) exposure to infections with a predominantly sexual mode of transmission; Z79.899 Other long term (current) drug therapy
CPT/HCPCS: 36415; 80053; 81003; 81025; 83690; 84702; 85025; 85610; 85730; 87491; 87591; 99282; 99283

== ENCOUNTER 2025-07-16 11:39 | Emergency (ER) | payer SELFPAY ==
[2025-07-16 12:19] VITALS: BP 170/83; PULSE 100; RESP 18; TEMP 36.7; O2SAT 96; BMI 71.4
--- NOTE | 2025-07-16 12:21 | ED_ITS ---
HPI - URI/Sore Throat General Chief Complaint: Urogenital-Female Stated Complaint: ? uti ? yeast infection Time Seen by Provider: 07/16/25 14:36 History of Present Illness ED Provider: Dominique GRAYSON Narrative: the patient is a 30-year-old female who was concerned about the possibility of a recurrent chlamydial infection. She says that 3 weeks ago she had intercourse with a man who later told her that the condom had fallen off. She says that this is someone from whom she believes she once before got chlamydia. She is worried that he may have never been tested and therefore she says that she has been worried for the last 3 weeks that she might have a recurrent chlamydial infection. She says that she has had some mild urinary discomfort and some pain across her lower back. She has not had any vaginal discharge. She has not had any malodorous conditions with regard to her vagina or discharge. She has no abdominal pain. She has had no nausea or vomiting. She has had no fever, sweats, chills. Primarily she is interested in being treated for possible chlamydia. She also has noticed a sore spot on the back of her right pharynx. The patient says that she has been anxious about possible recurrent chlamydia ever since the sexual encounter 3 weeks ago. She says that she started to worry about symptoms the day after the encounter. Related Data Previous Rx's ?Medication ?Instructions ?Recorded ondansetron HCl 4 mg tablet 4 mg PO Q8H PRN nausea and 04/22/21 (Zofran) vomiting #10 tabs ondansetron HCl 4 mg tablet 4 mg PO Q8H PRN nausea and 04/22/21 (Zofran) vomiting #10 tabs ondansetron HCl 4 mg tablet 4 mg PO Q8H PRN nausea and 04/22/21 (Zofran) vomiting #10 tabs lorazepam 1 mg tablet (Ativan) 1 mg PO BID PRN anxiety #4 tabs 10/27/21 ondansetron 4 mg disintegrating 4 mg PO Q8H PRN nausea and 10/27/21 tablet vomiting #20 tabs amoxicillin 875 mg-potassium 1 tab PO BID #14 tabs clavulanate 125 mg tablet ibuprofen 600 mg tablet 600 mg PO Q8H PRN pain #20 t abs 10/12/22 valacyclovir 1 gram tablet 1,000 mg PO Q8H #21 tabs doxycycline hyclate 100 mg capsule 100 mg PO BID 7 day s #14 caps 03/22/25 doxycycline monohydrate 100 mg 100 mg PO BID #14 caps 07/16/25 capsule ibuprofen 400 mg tablet 400 mg PO Q6H PRN pain #14 t abs 07/16/25 Allergies Allergy/AdvReac Type Severity Reaction Status Date / Time No Known Allergies Allergy Verified 07/16/25 12:22 Review of Systems Review of Systems: Yes all other systems are reviewed and are negative [facility] Past Medical History Medical History Anxiety Depression No known health problems Social History Social History Alcohol intake: current Alcohol intake frequency: a few times a month Patient Tobacco Use Status: Current everyday Tobacco user Substance Use Type: Crack/Cocaine Advance Directives: No Advance Directives Information Provided: Yes Do you have a plan to hurt others: No Plan Patient : No Physical Exam Vital Signs: Vital Signs: Last Vital Signs Temp 98.1 F 07/16/25 15:30 Pulse 100 07/16/25 15:30 Resp 18 07/16/25 15:30 BP 170/83 H 07/16/25 15:30 Pulse Ox 96 07/16/25 15:30 O2 Del Method Room Air 07/16/25 15:30 BMI result Body Mass Index 71.4 Const: Other: The patient is awake, alert, pleasant, cooperative. She does not appear in acute distress or seem obviously ill. She has a BMI of 71. Orientation/consciousness: patient oriented x3 HEENT: Other: The face is symmetrical. Mucous membranes moist. There is a small area of erythema on the posterior pharynx which I think is indicative of an aphthous ulcer type lesion. Eyes: Other: Pupils are round equal, conjunctivae are clear, extraocular movements intact Neck: Neck: Yes normal visual inspection, Yes full ROM and Yes no l ymphadenopathy Resp: Effort & Inspection: normal respiratory effort Auscultation: clear to auscultation bilaterally Cardio: Rate: regular rate Rhythm: regular rhythm Heart sounds: S1 normal heart sound present and S2 normal heart sound present GI: Other: Abdomen is soft and nontender Back/Spine/Pelvis: Other: no CVA percussion tenderness Skin: Other: The skin is dry and unremarkable Neuro: General: patient oriented x3, gait normal, tone normal, moves all extremities, no focal motor deficits and CN's II-XI intact bilaterally Extrem: Other: There is no calf swelling or tenderness. No asymmetry. No peripheral edema. Course Course Course Narrative: Anika Camacho TRAVELING AUDITOR 07/16 122 This is a rapid medical exam. Defer additional HPI, ROS and PE to primary provider. 30-year-old female who is healthy presents the ER with complaints of painful urination, lower back pain. Patient recently had chlamydia and was treated but would like to be retested. No current vaginal discharge. Also has sore throat. Will obtain UA, CT NG, BV panel, strep, viral testing VSS Medical Decision Making Medical Decision Making MDM Narrative: The patient is a 30-year-old female who says that she has been having symptoms of low back pain and possibly some mild urinary symptoms for about 3 weeks, ever since the day after a sexual encounter in which the man's condom fell off. The patient is very worried that she might have a recurrent chlamydial infection. She has had no vaginal discharge. She has had no vaginal odor. She has had no urinary frequency. Her urinalysis does not suggest the presence of a UTI. The patient has clinical appearance seems very benign. My overall impression is that the patient is very anxious about the question of a possible recurrent chlamydial infection. I explained that I thought that treating her empirically would be appropriate as chlamydial testing can be uncertain. However she does not seem to have any symptoms of gonorrhea or bacterial vaginosis. She does not have any pelvic discomfort to suggest possible PID. Lab Data Labs: Lab Results 07/16/25 07/16/25 07/16/25 Range/Units 12:39 12:41 14:59 Urine Color Yellow Urine Appearance Clear Urine pH 6.0 (5.0-9.0) Ur Specific Leroy 1.025 (1.005-1.025) Urine Protein Negative (Neg-Trace) mg/dL Urine Glucose (UA) Negative (Negative) mg/dL Urine Ketones Negative (Negative) mg/dL Urine Blood Negative (Negative) Urine Nitrite Negative (Negative) Ur Leukocyte Esterase Negative (Negative) Urine Test NEGATIVE (NEGATIVE) Ur N gonorrhoeae DNA (PCR) NOT DETECTED (Not Detect.) Ur Chlamydia DNA (PCR) NOT DETECTED (Not Detect.) Influenza Type A (PCR) NEGATIVE (Negative) Influenza Type B (PCR) NEGATIVE (Negative) RSV RNA Qual (PCR) NEGATIVE (Negative) SARS-CoV-2 RNA (RT-PCR) NEGATIVE (Negative) S. pyogenes GrpA HANG Negative (Negative) T. vaginalis (PCR) NOT DETECTED (Not Detect) Bact vaginosis (PCR) NEGATIVE (Negative) C. krusei/glabrata (PCR) NOT DETECTED (Not Detect) Gracie group (PCR) NOT DETECTED (Not Detect) Discharge Plan Discharge Clinical Impression: Dysuria Patient Disposition: Home, Self-Care Additional Instructions: I have sent a prescription for doxycycline to your pharmacy. Please take this medication 2 times a day, approximately every 12 hours. Please take the entire course of antibiotics. Your throat swab tested negative for strep. You may use ibuprofen as needed for discomfort. Please work on getting a primary care doctor as soon as your insurance kicks in. you have been provided with contact information for several local primary care offices. Additionally there is contact information for the [facility], [facility]. you may use ibuprofen and tyrc-hzl-gginixs acetaminophen as needed for discomfort. Please return to the emergency room if you feel significantly worse. Prescriptions: New doxycycline monohydrate 100 mg capsule 100 mg PO BID Qty: 14 0RF ibuprofen 400 mg tablet 400 mg PO Q6H PRN (Reason: pain) Qty: 14 0RF No Action ondansetron 4 mg tablet,disintegrating 4 mg PO Q8H PRN (Reason: nausea and vomiting) Qty: 20 0RF lorazepam [Ativan] 1 mg tablet 1 mg PO BID PRN (Reason: anxiety) Qty: 4 0RF ondansetron HCl [Zofran] 4 mg tablet 4 mg PO Q8H PRN (Reason: nausea and vomiting) Qty: 10 0RF ondansetron HCl [Zofran] 4 mg tablet 4 mg PO Q8H PRN (Reason: nausea and vomiting) Qty: 10 0RF ondansetron HCl [Zofran] 4 mg tablet 4 mg PO Q8H PRN (Reason: nausea and vomiting) Qty: 10 0RF amoxicillin-pot clavulanate 875-125 mg tablet 1 tab PO BID Qty: 14 0RF ibuprofen 600 mg tablet 600 mg PO Q8H PRN (Reason: pain) Qty: 20 0RF valacyclovir 1 gram tablet 1,000 mg PO Q8H Qty: 21 0RF doxycycline hyclate 100 mg capsule 100 mg PO BID 7 Days Qty: 14 0RF Referrals: [facility] [Provider Group] [facility] [Provider Group, Internal Medicine] [facility] [Provider Group, Internal Medicine] [facility], [facility] [Provider Group, Primary Care] [facility] [Provider Group] Margo Murcia MD [Physician, Internal Medicine] Interventions: ED Discharge Assessment Last Done: 07/16/25 15:30 Discharge Date/Time: 07/16/25 15:30 Print Language: [place]
[2025-07-16 13:14] LABS: UPreg QC Valid YES
[2025-07-16 13:15] LABS: Appearance Urine Clear; Glucose Urine UA Negative (Negative); PH 6.0 (5.0-9.0); Specific Gravity - Urine 1.025 (1.005-1.025)
[2025-07-16 13:17] LABS: Strep A Nucleic Acid Negative (Negative)
[2025-07-16 13:58] LABS: Resp Syncy Virus RNA Qual PCR NEGATIVE (Negative); SARS COV2 PCR INHOUSE NEGATIVE (Negative)
--- OUTSIDE RECORDS SUMMARY | 2025-07-16 14:35 | XMS_ITS | Clinical Summary ---
Author Organization [facility] Address [address] [place] [id number] Phone Care Team Providers Care Brand Executive Name Role Phone Pcp, Unknown Primary Care [...] on file Insurance [employer] PARTIAL [employer] NET PARTIAL HE[employer] NET PARTIAL HE[employer] NET PARTIAL HE[employer] NET PARTIAL HE[employer] NET PARTIAL [employer] PART[employer] NET PARTIAL Care Teams Brand Executive Relationship Specialty Start Date End Date Pcp, Unknown PCP - General 04/29/19 Additional Source Comments The information contained in this document represents components of the legal health record. It is not the complete legal health record.[facility]
--- OUTSIDE RECORDS SUMMARY | 2025-07-16 14:35 | XMS_ITS | Encounter Summary ---
Author Organization [facility] Address [address] [place] [id number] Phone Care Team Providers Care Senior Integration Architect Name Role Phone Sujey Flores MD Primary Care Provider [phone]- [phone] Pcp, Unknown Primary Care Provider Unavailabl e Encounter Details Date Type Department Care Team (Late st Contact Info) Description 06/07/2017 Procedure Pass [facility], Ct Scan - [address] [address] Social History Tobacco Use Types Packs/Day Years [...] on filedocumented in this encounter Care Teams Senior Integration Architect Relationship Specialty Start Date End Date Sujey Flores MD PCP - General Family Medicine 06/07/17 04/28/19 Pcp, Unknown PCP - General 04/29/19 documented as of this encounter Additional Source Comments The information contained in this document represents components of the legal health record. It is not the complete legal health record.[facility]
--- OUTSIDE RECORDS SUMMARY | 2025-07-16 14:35 | XMS_ITS | Encounter Summary ---
Author Organization [facility] Address [address] [place] [id number] Phone Care Team Providers Care Patient Service Associate Name Role Phone Unknown, Unknown Primary Care Provider Sujey Conrad MD Primary Care Provider [phone]- [phone] Pcp, Unknown Primary Care Provider Unavailabl e Encounter Details Date Type Department Care Team (Late st Contact Info) Description 05/26/2017 Procedure Pass [facility], Ct Scan - [address] [address] Social History Tobacco Use Types Packs/Day Years [...] on filedocumented in this encounter Care Teams Patient Service Associate Relationship Specialty Start Date End Date Unknown, Unknown, MD PCP - General 05/26/17 06/06/17 Sujey Flores MD [email or web address] PCP - General Family Medicine 06/07/17 04/28/19 Pcp, Unknown PCP - General 04/29/19 documented as of this encounter Additional Source Comments The information contained in this document represents components of the legal health record. It is not the complete legal health record.[facility]
[2025-07-16 15:13] LABS: CT PCR Urine NOT DETECTED (Not Detect.); NG PCR Urine NOT DETECTED (Not Detect.)
[2025-07-16 15:30] VITALS: BP 170/83; PULSE 100; RESP 18; TEMP 36.7; O2SAT 96
[2025-07-16 16:01] LABS: Bacterial Vaginosis PCR NEGATIVE (Negative); Candida Group PCR NOT DETECTED (Not Detect); Candida glab krusei PCR NOT DETECTED (Not Detect); Trichomonas vaginalis PCR NOT DETECTED (Not Detect)
== END 2025-07-16 15:30 | disposition home or self-care (01) ==
PROVIDERS: Nurse Practitioner Family; Emergency Provider Emergency Medicine
DX: R30.0 Dysuria (principal); Z20.2 Contact with and (suspected) exposure to infections with a predominantly sexual mode of transmission; Z03.818 Encounter for observation for suspected exposure to other biological agents ruled out; M54.50 Low back pain, unspecified
CPT/HCPCS: 81003; 81025; 81515; 87491; 87591; 87637; 87651; 99283; 99284